=== PATIENT | female | born 2000 | race Caucasian/White ===

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

== ENCOUNTER 2022-03-21 11:57 | Outpatient (CLI) | payer BC | END 2022-03-21 11:58 | disposition home or self-care (01) | LOC: SCSRAD 11:57 | PROVIDERS: ATTEND Chiropractor | DX: M54.50 Low back pain, unspecified (principal) | CPT/HCPCS: 72110 ==